=== PATIENT | male | born 1940 | race Native Hawaiian/Other Pacific Islander ===

== ENCOUNTER 2017-11-23 10:32 | Emergency (ER) | payer MEDICARE ==
[2017-11-23] MEDS ORDERED: ZOFRAN IV ONE (13:20)
[2017-11-23] MEDS ORDERED: MORPHINE IV ONE (13:20)
[2017-11-23] MEDS ORDERED: XYLOCAINE 1% 20 mL INFILTRATI ONE (13:20)
--- NOTE | 2017-11-23 13:27 | Emergency Department Report ---
ED Extremity Problem HPI - General Chief complaint: Shoulder Injury Stated complaint: SHOULDER PAIN Time Seen by Provider: 11/23/17 13:19 Source: patient Mode of arrival: Ambulatory Limitations: No Limitations - History of Present Illness Initial comments: Mr. Jamison is a healthy 77 yo male who presents with shoulder injury. He fell today onto his right shoulder. He slipped in the shower. Denies any headache or neck pain. Denies any other injury. He has severe pain in right shoulder with deformity. He's had lower extremity swelling for 2 weeks. Brother was going to take the patient to doctor today for possible spider bite on both lower extremities. Redness and tenderness of the right lower leg. Our ED staff member provided [place] interpretation. Complaint: extremity pain -: Sudden, hour(s) (2) Location: right, upper extremity History of Same: No Severity scale (0 -10): 10 Quality: aching Consistency: constant Worsens with: other (movement) Associated Symptoms: denies other symptoms - Related Data Previous Rx's Medication Instructions Recorded Last Taken Type Sulfamethoxazole/Trimethoprim 1 each PO BID 7 Days #14 tablet 11/23/17 Unknown Rx [Bactrim DS TAB] Allergies Allergy/AdvReac Type Severity Reaction Status Date / Time No Known Allergies Allergy Unverified 11/23/17 11:54 ED Review of Systems ROS: Stated complaint: SHOULDER PAIN Other details as noted in HPI Comment: All other systems reviewed and negative Constitutional: denies: fever, malaise Respiratory: denies: cough Cardiovascular: denies: chest pain ED Past Medical Hx - Past Medical History Previous Medical History?: No - Surgical History Past Surgical History?: No - Social History Smoking Status: Never Smoker - Medications Home Medications: Home Medications Medication Instructions Recorded Confirmed Last Taken Type Sulfamethoxazole/Trimethoprim 1 each PO BID 7 Days #14 tablet 11/23/17 Unknown Rx [Bactrim DS TAB] ED Physical Exam - General Limitations: No Limitations General appearance: alert, in no apparent distress - Head Head exam: Present: atraumatic, normocephalic - Eye Eye exam: Present: normal appearance - ENT ENT exam: Present: mucous membranes moist - Neck Neck exam: Present: normal inspection - Respiratory Respiratory exam: Present: normal lung sounds bilaterally. Absent: respiratory distress, wheezes, rales, rhonchi - Cardiovascular Cardiovascular Exam: Present: regular rate, normal rhythm, normal heart sounds. Absent: systolic murmur, diastolic murmur, rubs, gallop - GI/Abdominal GI/Abdominal exam: Present: soft, normal bowel sounds. 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 Absent: rash ED Course Vital Signs 11/23/17 13:57 Respiratory 18 Rate - Joint Aspiration/Injection Consent Obtained: verbal consent Time Out Performed: Yes Indications: to relieve pressure/pain Side of Body: right Joint Aspirated: shoulder Ultrasound Guidance: No Skin Prep: Povidone-Iodine1% Local Anesthesia Used: Lidocaine 1% Amount of Anesthesia Used (mls): 20 Needle Size Used: Other (21) Syringe Size Used: Other (35cc) Medication Injected, if any: Lidocaine Amount of Medication Injected (mls): 20 Patient Tolerated Procedure: well - Orthopedic Joint Reduction Joint #1 Consent Obtained: verbal consent Time Out Performed: Yes Side: right Joint Reduction Location: shoulder Analgesia: none (joint infection) Local Anesthetic Used: Lidocaine 1% Amount of Anesthetic Used (mls): 20 Shoulder Technique Used (if applicable): external rotation, Vasquez Technique Used: direct manipulation Post-Reduction Neuro Exam: intact Post-Reduction Vascular Exam: intact Post Reduction X-Ray Obtained: Yes Post Reduction X-Ray Results: reduced Splint Applied: Yes (shoulder immobilizer) Patient Tolerated Procedure: well ED Medical Decision Making - Radiology Data Radiology results: report reviewed, image reviewed interpreted by me: post reduction xray showed adequately reduced right shoulder first x-ray: anterior shoulder dislocation - Medical Decision Making Mr. Jamison presents with right shoulder dislocation after fall. Neurovascularly intact. Reduced after joint injection of lidocaine. dc'd home with shoulder immobilizer and rx for bactrim for mild cellulitis in right leg Critical care attestation.: If time is entered above; I have spent that time in minutes in the direct care of this critically ill patient, excluding procedure time. ED Disposition Clinical Impression: Cellulitis of leg, right, Anterior dislocation of right shoulder Disposition: - TO HOME OR SELFCARE Is pt being admited?: No Does the pt Need Aspirin: No Condition: Stable Instructions: Shoulder Dislocation (ED), Cellulitis (ED) Prescriptions: Sulfamethoxazole/Trimethoprim [Bactrim DS TAB] 1 each PO BID 7 Days #14 tablet Referrals: PRIMARY CARE, [Primary Care Provider] - 3-5 Days Time of Disposition: 15:24 Print Language: SAO TOMEAN
--- NOTE | 2017-11-23 13:55 | XRay Report ---
Left shoulder 3 views: History: Obvious swelling deformity status post fall. Findings: There is anterior dislocation noted of the humeral head. The humeral head is noted anteroinferior to the glenoid. No evidence of fracture. Impression: Anterior dislocation right shoulder
--- NOTE | 2017-11-23 15:50 | XRay Report ---
FINAL REPORT EXAM: XR SHOULDER 1V RT HISTORY: Post reduction COMPARISON: None. TECHNIQUE: Two views of the right shoulder FINDINGS: There is no acute fracture or dislocation. The glenohumeral and acromioclavicular joint spaces are preserved. The overlying soft tissues are intact. IMPRESSION: No acute bony abnormality of the right shoulder.
[2017-11-23 19:21] VITALS: BP 142/84
== END 2017-11-23 16:00 | disposition home or self-care (01) ==
LOC: ED 10:32
DX: S43.004A Unspecified dislocation of right shoulder joint, initial encounter (principal); L03.115 Cellulitis of right lower limb; W18.2XXA Fall in (into) shower or empty bathtub, initial encounter; Y93.89 Activity, other specified; Y92.89 Other specified places as the place of occurrence of the external cause; Y99.8 Other external cause status
CPT/HCPCS: 20610; 23650; 73020; 73030; 96374; 96375; 99284; J2270; J2405

== ENCOUNTER → 2019-05-27 | Emergency (ER) | payer MEDICARE ==
[~2019-05-27] MED LIST: AMIODARONE 150 MG/3 ML INJ IV ONE; EPINEPHrine 1:10,000 1 MG/10 ML SYRINGE ONE
--- NOTE | 2019-05-27 18:14 | Emergency Department Report ---
ED CPR HPI - General Stated Complaint: CARDIAC ARREST Time Seen by Provider: 05/27/19 17:59 - History of Present Illness Initial Comments: Patient is a 78-year-old male who had just returned home from work with his brother. Patient sat on the couch and was found having difficulty breathing and was unresponsive. By the time paramedics got there 10 minutes after the incident occurred patient was pulseless. Patient was intubated prior to arrival and CPR initiated. Patient was in PEA. 3 rounds of epi were given prior to the patient's arrival. MD Complaint: stopped breathing Place: home Shock Advised: No Initial Findings in the Field: no pulse, PEA ROSC in the Field: No Associated Injuries: No Treatments Prior to Arrival: intubation - Related Data Previous Rx's Medication Instructions Recorded Last Taken Type Sulfamethoxazole/Trimethoprim 1 each PO BID 7 Days #14 tablet 11/23/17 Unknown Rx [Bactrim DS TAB] Allergies Allergy/AdvReac Type Severity Reaction Status Date / Time No Known Allergies Allergy Unverified 11/23/17 11:54 ED Review of Systems ROS: Stated complaint: CARDIAC ARREST Other details as noted in HPI Comment: All other systems reviewed and negative ED Past Medical Hx - Social History Smoking Status: Never Smoker - Medications Home Medications: Home Medications Medication Instructions Recorded Confirmed Last Taken Type Sulfamethoxazole/Trimethoprim 1 each PO BID 7 Days #14 tablet 11/23/17 Unknown Rx [Bactrim DS TAB] ED Physical Exam - General General appearance: obtunded - Head Head exam: Present: atraumatic, normocephalic - Eye Eye exam: Present: other (Pupils are fixed and dilated) - ENT ENT exam: Present: mucous membranes moist - Neck Neck exam: Present: normal inspection - Respiratory Respiratory exam: Absent: normal lung sounds bilaterally (No spontaneous breath sounds. Clear with bagging.) - Cardiovascular Cardiovascular Exam: Present: other (No spontaneous heart tones are appreciated. Ultrasound was used which showed no organized cardiac movement) - GI/Abdominal GI/Abdominal exam: Present: soft, distended - Rectal Rectal exam: Present: deferred - Extremities Exam Extremities exam: Present: normal inspection - Back Exam Back exam: Present: normal inspection - Skin Skin exam: Present: warm, dry, intact, normal color. Absent: rash ED Medical Decision Making - Medical Decision Making Please see code sheet. Patient arrived in PEA. Epinephrine had been given prior to arrival and we continued to give q. 3-minute epinephrine shots. Patient was given an amp of bicarb and calcium chloride on arrival as well.. Patient's rhythm did change to ventricular fibrillation. Patient was shocked twice with 200 J biphasic. There is again no return of spontaneous circulation the patient was pronounced . Alerted family to the patient's . Critical care attestation.: If time is entered above; I have spent that time in minutes in the direct care of this critically ill patient, excluding procedure time. ED Disposition Clinical Impression: Cardiopulmonary arrest Disposition: DC-20 Is pt being admited?: No Does the pt Need Aspirin: No Condition: Stable Referrals: PRIMARY CARE, [Primary Care Provider] - 3-5 Days Time of Disposition: 18:18
== END ==
LOC: ED 17:39
DX: I46.9 Cardiac arrest, cause unspecified (principal)
CPT/HCPCS: J0171; J0282